=== PATIENT | female | born 1995 | race Caucasian/White ===

== ENCOUNTER 2020-04-03 11:38 | Inpatient (IN) | payer BC ==
[2020-04-03] VITALS (38 sets, daily range): BP systolic 98–147; BP diastolic 57–89; PULSE 66–117; TEMP 98.2–99.2
[~2020-04-03] VITALS: Ht 170.2 cm; Wt 81.4 kg
[2020-04-03] MEDS ORDERED: PRENATAL TABLET PO (12:16)
--- NOTE | 2020-04-03 12:30 | NUR ---
1150- Pt arrives on unit ambulatory. Was sent over from the office with SROM that possibly occured Friday night around 2300. Pt states she only noticed leaking when she stood up off of the toilet on Friday but then this morning needed to wear a pad. Denies UCs or vaginal bleeding. Pt changes into gown. 1159- Pt into bed, EFM and TOCO on and tracing. VSS. Assessment completed. 1230- IV start in LF, labs obtained, saline locked. Pt tolerated well. Consent forms explained and signed.
--- NOTE | 2020-04-03 13:30 | NUR ---
1327- Dr Garcia at bedside, introduction to Pt. Plan of care discussed, questions answered.
[2020-04-03 14:10] LABS: BASO % 0.4 % (0.0-2.0); EOS % 0.1 % (0-4.0); GRAN % 72.9 % (42.2-75.2); HEMATOCRIT 40.7 % (37.0-47.0); HEMOGLOBIN 13.4 g/dl (12.5-16.0); LYMPH # 1.8 (1.2-3.4); LYMPH % 18.2 % (20.0-51.0); MEAN CELL VOLUME 85 fl (80.0-100.0); MEAN CORPUSCULAR HEMOGLOBIN 28 pg (27.0-31.0); MEAN CORPUSCULAR HGB CONC 33 g/dl (33.0-37.0); MEAN PLATELET VOLUME 12.9 fl (7.4-10.4); MONO # 0.7 (0.1-0.6); MONO % 7.7 % (1.7-9.3); PLATELET COUNT 199 K/mm3 (130-400); RED BLOOD COUNT 4.77 M/mm3 (4.10-5.30); REDCELL DISTRIBUTION WIDTH-CV 13.2 % (11.5-14.5)
[2020-04-03 14:21] LABS: ALBUMIN 3.8 gm/dL (3.5-5.0); BILIRUBIN,TOTAL 0.5 mg/dL (0.0-1.0); CALCIUM 9.2 mg/dL (8.4-10.2); CREATININE, serum 0.59 (0.52-1.25); POTASSIUM 3.6 mmol/L (3.4-5.0); TOTAL PROTEIN 7.2 gm/dL (6.4-8.2)
--- NOTE | 2020-04-03 19:30 | NUR ---
Pt with questions about epidural, states "I'm not ready yet"
--- NOTE | 2020-04-03 19:50 | NUR ---
pt requests epidural, LR to bolus rate, anesthesia notified.
--- NOTE | 2020-04-03 20:15 | NUR ---
Sitting on edge of bed.
--- NOTE | 2020-04-03 20:20 | NUR ---
ESTIMATOR PRINTING PLATE MAKING into room for epidural placement, see anesthesia record for placement particulars.
[2020-04-04] VITALS (20 sets, daily range): BP systolic 103–148; BP diastolic 54–84; PULSE 76–120; TEMP 97.8–99.1
--- NOTE | 2020-04-04 02:00 | NUR ---
Pt request tums for 'acid reflux', barely gets tabs chewed than 100cc emesis. State "I feel way better now"
--- NOTE | 2020-04-04 03:00 | NUR ---
SVE complete. 2655 Shetty catheter christina'd.
--- NOTE | 2020-04-04 03:30 | NUR ---
Pushing well. Dr levy called to come for delivery.
--- NOTE | 2020-04-04 03:40 | NUR ---
Dr Garcia into room. Pt prepped for delivery. [address] Dr Garcia.
--- NOTE | 2020-04-04 03:55 | NUR ---
Placenta delivers spont and intact with 3 vessell cord. Pitocin gtt to bolus rate, fundus firms to massage. perineal repair started.
[2020-04-05 01:45] VITALS: BP 105/57; PULSE 74; TEMP 97.7
[2020-04-05 08:37] VITALS: BP 111/70; PULSE 72; TEMP 97.6
[2020-04-05] MEDS ORDERED: IBU800 M1 PO (08:46)
== END 2020-04-05 14:40 | disposition home or self-care (01) | DRG 806 ==
LOC: LDR 11:49 → OB 11:49
PROVIDERS: Obstetrics & Gynecology; ADMIT Student in an Organized Health Care Education/Training Program
PROC: 10E0XZZ Delivery of Products of Conception, External Approach (ICD-10-PCS; principal; 2020-04-04)
PROC: 0KQM0ZZ Repair Perineum Muscle, Open Approach (ICD-10-PCS; 2020-04-04)
DX: O69.81X0 Labor and delivery complicated by cord around neck, without compression, not applicable or unspecified (principal); E72.12 Methylenetetrahydrofolate reductase deficiency; Z37.0 Single live birth; O99.12 Other diseases of the blood and blood-forming organs and certain disorders involving the immune mechanism complicating childbirth; Z3A.39 39 weeks gestation of pregnancy; O70.1 Second degree perineal laceration during delivery
CPT/HCPCS: J2590; J2791; J7120

== ENCOUNTER 2022-01-22 06:18 | Inpatient (IN) | payer OTHER ==
[~2022-01-22] VITALS: Ht 170.2 cm; Wt 76.4 kg
[2022-01-22] VITALS (42 sets, daily range): BP systolic 91–144; BP diastolic 50–86; PULSE 73–133; TEMP 97.5–98.6
[~2022-01-22 06:18] MED LIST: IBU800 M1 PO; PRENATAL TABLET PO
--- NOTE | 2022-01-22 06:30 | NUR ---
0630 - PATIENT AMBULATORY TO LDR4 WITH SPOUSE. PATIENT ORIENTED TO ROOM. PLAN OF CARE DISCUSSED. PATIENT CHANGES INTO GOWN. PATIENT DENIES ANY LEAKING OF FLUID, BLOODY SHOW OR REGULAR CONTRACTIONS. PATIENT REPORTS GOOD MOVEMENT. 0654 - PATIENT PLACED ON MONITOR. VSS. 0706 - IV STARTED. LABS OBTAINED ORDERED. LR INITIATED AND ABX GIVEN ORDERED. 0715 - PLAN OF CARE DISCUSSED AND CONSENTS REVIEWED AND SIGNED. 0730 - BABY IS A CATEGORY 1 TRACING. PITOCIN GTT INITIATED. PATIENT REPOSITIONED. CARE ONGOING.
[2022-01-22 07:49] LABS: BASO % 0.5 % (0.0-2.0); EOS % 0.5 % (0.0-4.0); GRAN # 5.8 K/mm3 (1.4-6.5); GRAN % 68.2 % (42.2-75.2); HEMOGLOBIN 11.7 g/dl (12.5-16.0); LYMPH # 1.9 K/mm3 (1.2-3.4); LYMPH % 22.6 % (20.0-51.0); MEAN CELL VOLUME 82 fl (80.0-100.0); MEAN CORPUSCULAR HEMOGLOBIN 28 pg (27-31); MEAN CORPUSCULAR HGB CONC 34 g/dl (33.0-37.0); MEAN PLATELET VOLUME 11.3 fl (7.4-10.4); MONO # 0.6 K/mm3 (0.1-0.6); MONO % 7.6 % (1.7-9.3); PLATELET COUNT 255 K/mm3 (130-400); RED BLOOD COUNT 4.17 M/mm3 (4.10-5.30); REDCELL DISTRIBUTION WIDTH-CV 12.8 % (11.5-14.5)
[2022-01-22 08:01] LABS: HEMATOCRIT 34.3 % (37.0-47.0)
--- NOTE | 2022-01-22 10:55 | NUR ---
1055 - MD AUGIE AT BEDSIDE. PLAN OF CARE DISCUSSED. 1059 - SVE PERFORMED BY MD AUGIE. . AROM PERFORMED BY MD AUGIE. [facility] FLUID NOTED. 1099 - STEPHAN CARE PERFORMED. PATIENT REPOSITIONED. CARE ONGOING.
--- NOTE | 2022-01-22 12:47 | NUR ---
1247 - MD AUGIE CALLS FOR UPDATE. PHYSICIAN NOTIFIED THAT PATIENT IS HAVING REGULAR CONTRACTIONS EVERY 2-4 MINUTES AND BREATHING THROUGH THEM. PITOCIN CONTINUES AT 20MU/HR. MD INSTRUCTS RN TO PERFORM SVE AND IF NO CHANGE, INCREASE PITOCIN BY 2MU/15MIN UNTIL PITOCIN REACHES 30MU/HR. CARE ONGOING. THIS RN TO REPORT BACK TO MD AFTER SVE IS COMPLETE.
--- NOTE | 2022-01-22 13:30 | NUR ---
PERIOD OF INTERMITTENT POOR EFM TRACING DUE TO USE OF WIRELESS MONITOR AND PATIENT AMBULATING. MONITORS ADJUSTED UPON RETURN TO ROOM. CARE ONGOING.
--- NOTE | 2022-01-22 15:17 | NUR ---
1517 - BARBARA MENDOZA AT BEDSIDE. 1518 - PATIENT POSITIONED SITTING EDGE OF BED FOR PROCEDURE. TIME OUT COMPLETED. 1522 - SINGLE SHOT GIVEN PER MEDIA RELATIONS ASSOCIATE. 1530 - PATIENT REPOSITIONED. MONITORS ADJUSTED.
--- NOTE | 2022-01-22 15:42 | NUR ---
Blood pressure-114/69 Patient states she is feeling a little weak and nauseated. 1548: Blood pressure- 91/50. LR bolus started. 1553: Blood pressure- 107/68 and patient states feeling better. 1600: Blood pressure- 90/51 and patient nauseated. 1602: Ephedrine 10mg given IM Patient uncomfortable with contractions and Karen JIMENEZ notified. FHR baseline 125-130bpm and recurrent variables noted. 1605: SVE-10/100/0 and FHR decreasing 90bpm. Patient left lateral. FHR 70-90 bpm for approx. 3 minutes, patient right lateral. 1608: Dr. Meraz called for delivery per Salome CABRERA. 1610: FHR increasing to 130-135bpm. Patient feeling pressure with each contraction. 1612: Patient prepped for vaginal delivery and Dr. Meraz at bedside. 1616: Patient begins pushing with contractions. 1620: Spontaneous vaginal delivery of viable male, head followed by body. to patients abdomen and Bruno King RN assumes care of . Cord clamped x2 and cut by FOB. Cord blood obtained. Dr. Andrade repairs laceration. 1626: Spontaneous delivery of placenta and pitocin bolus started per protocol. Fundal massage done/bleeding moderate. Dr. Meraz orders for methergine. 1630: Methergine given IM, see EMAR. Fundal massage done/firm/bleeding WNL. Patient repositioned, pericare done, ice pack to perineum. Plan of care discussed.
--- NOTE | 2022-01-22 20:45 | NUR ---
Pt unable to lift and hold legs off of bed for 5 seconds. Vital signs stable and bleeding WNL. Pt wishing to move to room for comfort. Pericare completed in bed. Clean gown on. Mesh panties and peripad applied. Pt positioned to sitting on edge of bed. Epidural catheter removed, tip smooth, blue, and intact. Pt able to pivot to wheelchair. Transferred to room 208 with infant and belongings. Safety precautions reviewed. Pt to ask for assistance if needing to get out of bed. Will attempt to ambulate again in about 1 hour.
[2022-01-23 01:05] VITALS: BP 112/75; PULSE 89; TEMP 98
[2022-01-23 05:10] VITALS: BP 114/79; PULSE 87; TEMP 97.4
[2022-01-23 07:00] VITALS: BP 109/66; PULSE 80; TEMP 97.6
[2022-01-23] MEDS ORDERED: IBU800 M1 PO (09:18)
--- NOTE | 2022-01-23 10:01 | NUR ---
Initial visit; Parents thanked Rosin Barrel Filler for offering congratulations and God's blessings for the of their son. Rosin Barrel Filler thanked family for choosing [facility].
[2022-01-23 11:21] VITALS: BP 117/65; PULSE 85
--- NOTE | 2022-01-23 18:21 | NUR ---
1810DISCHARGE INSTRUCTIONS REVIEWED WITH PATIENT. PATIENT VERBALIZED UNDERSTANDING. WILL NOTIFY NURSING STAFF WHEN READY TO LEAVE.
== END 2022-01-23 18:50 | disposition home or self-care (01) | DRG 806 ==
LOC: LDRO 06:18 → EDSTATUS 06:22 → OB 06:25 → LDR 06:25 → OB 20:45
PROVIDERS: ADMIT Student in an Organized Health Care Education/Training Program
PROC: 10E0XZZ Delivery of Products of Conception, External Approach (ICD-10-PCS; principal; 2022-01-22)
PROC: 0KQM0ZZ Repair Perineum Muscle, Open Approach (ICD-10-PCS; 2022-01-22)
PROC: 10907ZC Drainage of Amniotic Fluid, Therapeutic from Products of Conception, Via Natural or Artificial Opening (ICD-10-PCS; 2022-01-22)
PROC: 3E033VJ Introduction of Other Hormone into Peripheral Vein, Percutaneous Approach (ICD-10-PCS; 2022-01-22)
DX: O99.824 Streptococcus B carrier state complicating childbirth (principal); E72.12 Methylenetetrahydrofolate reductase deficiency; Z37.0 Single live birth; O72.1 Other immediate postpartum hemorrhage; O99.284 Endocrine, nutritional and metabolic diseases complicating childbirth; O99.62 Diseases of the digestive system complicating childbirth; K21.9 Gastro-esophageal reflux disease without esophagitis; O70.1 Second degree perineal laceration during delivery; O77.0 Labor and delivery complicated by meconium in amniotic fluid; O26.893 Other specified pregnancy related conditions, third trimester; O69.81X0 Labor and delivery complicated by cord around neck, without compression, not applicable or unspecified; Z3A.39 39 weeks gestation of pregnancy; Z88.0 Allergy status to penicillin
CPT/HCPCS: J2210; J2590; J3370; J7050; J7120